=== PATIENT | female | born 2000 | race Hispanic/Latino ===

== ENCOUNTER 2023-01-30 16:24 | Inpatient (IN) | payer MEDICAID, SELFPAY ==
[2023-01-30] VITALS (38 sets, daily range): BP systolic 110–184; BP diastolic 57–114; PULSE 64–125; RESP 18; TEMP 36.5; O2SAT 92–100; BMI 29.7
--- NOTE | ~2023-01-30 | US_ITS ---
US OB follow up w BPP DATE: 01/30/2023 19:03 INDICATION: Abdominal pain for several hours. No care. TECHNIQUE: Real-time imaging and Doppler analysis COMPARISON: None FINDINGS: Live martinez intrauterine gestation, fetus in longitudinal lie, vertex presentation with heart rate of 115 bpm. Amniotic fluid index measures 6.9 cm, which is below the 5th percentile of 7.9 cm. Biparietal diameter 8.68 cm; 35 weeks 0 days Head circumference 32.69 cm; 37 weeks 1 day Abdominal circumference 31.02 cm; 35 weeks 0 days Femur length 6.78 cm; 34 weeks 6 days Composite age by [place] formula is 35 weeks 4 days +/- 2 weeks 3 days with LAMONT of 03/02/2023 compar ed to 01/06/2023 2 by LMP. Estimated weight is 2607 +/- 391 g. Head circumference/abdominal signal is 1.05, within normal range of 0.93-1.09 Femur length/BPD 78.14, within normal range of 71.0-87.0 Femur length/abdominal circumference 21.87, within normal range of 20.00-24.00 Femur length/head circumference 20.75, within normal range of 20.10-22.19 BIOPHYSICAL PROFILE reported by medical technician assistant: breathin out of 2 movement: 2 out of 2 tone: 0 out of 2 Amniotic fluid pocket: 2 out of 2 Total score: 4 out of 8 IMPRESSION: Oligohydramnios; LAURENCE measures 6.9 cm Biophysical profile score of 4 out of 8 Reviewed, dictated and finalized at [facility] Reviewed, dictated and finalized at [facility].
[2023-01-30 17:58] LABS: Basophils Percent Auto 0.2 % (0.2-1.2); Eosinophils Absolute Auto 0.1 K/mm3 (0-0.3); Eosinophils Percent Auto 0.7 % (0-4.4); Hematocrit 42.1 % (37.0-47.0); Hemoglobin 14.3 g/dL (12.0-15.0); Immature Granulocyte Absolute 0.03 K/mm3 (0.00-0.031); Immature Granulocyte Percent A 0.3 % (0-0.5); Lymphocytes Absolute Auto 2.13 K/mm3 (0.9-3.2); Lymphocytes Percent Auto 23.4 % (18.3-44.2); Mean Corpuscular Hemoglobin 31.4 pg (26-34); Mean Corpuscular Volume 92.3 fl (80-100); Mean Platelet Volume 11.7 fl (7.4-10.4); Monocytes Absolute Auto 0.5 K/mm3 (0.1-0.6); Monocytes Percent Auto 5.3 % (2.6-8.5); Neutrophils Absolute Auto 6.4 K/mm3 (1.3-6.7); Neutrophils Percent Auto 70.1 % (45.5-73.1); Platelet Count Result 175 k/mm3 (150-375); Red Blood Count 4.56 M/mm3 (4.2-5.4); Red Cell Distribution Width 14.5 % (11.5-14.5); White Blood Count 9.1 K/mm3 (4.5-10.0)
--- NOTE | 2023-01-30 18:28 | PC.NURSE ---
Pt arrived to department, she is mohawk speaking only. Her sister in law was with her and also mohawk speaking. States she had care in [place]. She could not remember the name of the clinic. Her sister in laws is going to get the information when he gets home. She stated her due date was 01/20. Fundal height on admission was 32. Denies bleeding but states she was leaking brownish fluid. Denies medical problems or past surgeries. She states the ultrasounds she had were fine. The doctors did not mention concerns with the placenta or the baby.
[2023-01-30 18:50] LABS: HIV 1/2 Ab P24 Ag Result Negative (Negative)
[2023-01-30] MEDS: LACTATED RINGERS 1,000 ML 999 ML IV CONT (19:15)
[2023-01-30] MEDS: fentaNYL CITRATE INJ (*CRX) 100 MCG/2 ML VIAL 50 MCG IV PUSH (19:44)
[2023-01-30] MEDS: LACTATED RINGERS 1,000 ML 125 ML IV CONT (20:15)
[2023-01-30] MEDS: AMPICILLIN 2 GM/NS 100 ML 2 GM/100 ML BAG IVPB (21:00)
[2023-01-30 21:03] LABS: Hepatitis B Surface Antigen Negative (Negative); Rubella IgG Antibody 1.9 IU/ML
--- NOTE | 2023-01-30 21:15 | P.PNAN_ITS ---
Anes - Initial Pre Proc Eval Procedure: Labor epidural Date/Time: 01/30/23 21:15 Surgeon: Belem Khan MD Pre Op Diagnosis: Labor pain Pre Op Diagnosis: contractions Patient Data Age: 22 Gender: F Height: 1.4 m Weight: 58 kg Last Vital Signs Pulse 84 01/30/23 17:48 BP 146/99 H 01/30/23 17:48 Allergies Allergy/AdvReac Type Severity Reaction Status Date / Time No Known Allergies Allergy Verified 01/30/23 20:57 Laboratory Tests 01/30/23 17:50 WBC 9.1 K/mm3 (4.5-10.0) RBC 4.56 M/mm3 (4.2-5.4) Hgb 14.3 g/dL (12.0-15.0) Hct 42.1 % (37.0-47.0) MCV 92.3 fl (80-100) MCH 31.4 pg (26-34) MCHC 34.0 g/dl (32-36) RDW 14.5 % (11.5-14.5) Plt Count 175 k/mm3 (150-375) MPV 11.7 H fl (7.4-10.4) Immature Gran % (Auto) 0.3 % (0-0.5) Neut % (Auto) 70.1 % (45.5-73.1) Lymph % (Auto) 23.4 % (18.3-44.2) [place] % (Auto) 5.3 % (2.6-8.5) Eos % (Auto) 0.7 % (0-4.4) Baso % (Auto) 0.2 % (0.2-1.2) Lymph # (Auto) 2.13 K/mm3 (0.9-3.2) [place] # (Auto) 0.5 K/mm3 (0.1-0.6) Eos # (Auto) 0.1 K/mm3 (0-0.3) Baso # (Auto) 0.0 K/mm3 (0.0-0.1) Abs Immat Gran (auto) 0.03 K/mm3 (0.00-0.031) Absolute Neuts (auto) 6.4 K/mm3 (1.3-6.7) Absolute Nucleated RBC 0.0 K/mm3 (0.0-0.012) Nucleated RBC % 0.0 % (0.0-0.2) RPR Pending Hep Bs Antigen Negative (Negative) HIV 1&2 Ab/P24 Ag 4thGn Negative (Negative) Rubella IgG Antibody 1.9 L IU/ML (10 - ) Blood Type O Positive Antibody Screen Negative Patient hx anesthesia problems: none Family hx anesthesia problems: none Results Review: All pre-operative results and documents have been reviewed as part of the pre- operative evaluation. Anes - Eval Final PreProcedure Day of Procedure 01/30/23 21:15 Patient weight: normal Heart: regular rate and rhythm Neurological: alert and oriented ASA classification: II Anesthetic plan: proceed Anesthesia type and monitoring: regional epidural and standard monitoring Results Review: All pre-operative results and documents have been reviewed as part of the pre- operative evaluation. Informed Consent: The patient's anesthetic plan and its attendant risks and benefits were discussed with the patient/family/POA. Questions were solicited and answers provided to the satisfaction of the patient/family/POA.
--- NOTE | 2023-01-30 21:38 | WPDANESEPN ---
Anes - Epidural Procedure Note Date/Time: 01/30/23 21:38 Consent: I have discussed with the patient/family/POA, the placement of an epidural catheter and the use of epidural narcotic/local anesthetic for labor analgesia and/or postoperative pain management, including associated potential risks, benefits, complications and side effects. I have discussed alternative methods of labor analgesia and/or postoperative pain management. The patient/family/POA, understand(s) and wish(es) to proceed with epidural narcotic/local anesthetic for labor analgesia and/or postoperative pain management. Time-Out: A pre-procedural Time-Out was completed immediately before starting the procedure and confirmed: Patient Identification, Site, Procedure, Patient Position and the Availability of Requisite Equipment. Clinical Indications: Labor pain Epidural Insertion Note Patient position: sitting Skin prep: chlorhexidine and sterile drape Needle: 18g Tuohy-Schliff Catheter: 20g Unstyleted Technique: Loss of resistance. Level of insertion: L3/4 Catheter skin kaycee (cm): 8 Length in epidural space (cm): 3 Skin anesthesia: lidocaine 1% Test dose: 1.5% Lidocaine with 1:[id number] Epi, negative for subarachnoid Inj and negative for intravascular Inj Time of test dose: 21:26 Observations: tolerated well Complications: none
--- NOTE | 2023-01-30 22:01 | WPDHPUPDATE1 ---
History and Physical Update Update Date/Time: 01/30/23 22:01 History and Physical has been reviewed, including an updated exam of the patient. There are NO changes in the patient's condition. Risks, benefits, and alternatives have been discussed and questions answered. Patient agrees to proceed with procedure.
--- NOTE | 2023-01-30 22:02 | PM.IMHP ---
H&P: HPI History of Present Illness Date/Time: 01/30/23 22:02 Chief Complaint: Contractions Narrative: This patient is a 20-year-old 1 at approximately 37 weeks gestation. Her care is unknown to us. She is [place]ian-speaking only. She has trouble cross-country and presented here. She has nonreassuring testing, BPP 4/8, nonreassuring NST. Early labor. Will proceed to delivery. She understands. She understands risk. She denies any nausea, vomiting, fever, chills. She denies any not trust pain shortness of breath. Review of Systems Review of Systems: All systems reviewed & are unremarkable except as noted in HPI and below Constitutional: Constitutional: Denies chills, Denies fatigue, Denies fever(s) and Denies weakness Eyes: Eyes: Denies blurry vision, Denies change in vision, Denies loss of peripheral vision, Denies loss of vision, Denies other visual disturbances and Denies eye pain ENT: Denies vertigo, Denies dizziness, Denies hearing loss, Denies mouth pain, Denies nasal obstruction, Denies neck mass and Denies neck pain Cardiovascular: Cardiovascular: Denies chest pain, Denies diaphoresis, Denies syncope, Denies leg edema and Denies dyspnea Respiratory: Respiratory: Denies chest congestion, Denies cough, Denies hemoptysis, Denies dyspnea and Denies wheezing Gastrointestinal: Gastrointestinal: Denies abdominal pain, Denies constipation, Denies diarrhea, Denies nausea and Denies vomiting Genitourinary: Genitourinary: Denies hematuria, Denies change in libido, Denies nocturia, Denies genital lesions, Denies flank pain and Denies urinary urgency Musculoskeletal: Musculoskeletal: Denies abnormal gait, Denies back pain, Denies myalgias, Denies arthralgias, Denies joint swelling, Denies muscle weakness and Denies neck pain Integumentary/Breasts: Skin/Breast: Denies swelling, Denies breast pain, Denies breast mass, Denies dry skin, Denies nipple discharge, Denies unusual bruising and Denies jaundice Neurologic: Denies Neuro-related abnormal movements, Denies Abnormal speech present, Denies abnormal gait, Denies behavioral changes, Denies confusion, Denies vertigo, Denies dizziness, Denies syncope, Denies loss of vision, Denies memory loss, Denies convulsions and Denies weakness Psychiatric: Psychiatric: Denies abnormal sleep pattern, Denies behavioral changes, Denies change in libido, Denies confusion, Denies depression, Denies anhedonia and Denies memory loss Endocrine: Endocrine: Reports no additional endocrine complaints, Denies change in libido and Denies fatigue Hematologic/Lymphatic: Hematologic/Lymphatic: Reports no additional hematologic/lymphatic complaints Allergic/Immunologic: Allergic/Immunologic: Reports no additional allergic/immunologic complaints and Denies wheezing Meds Home Medications and Allergies Allergies Allergy/AdvReac Type Severity Reaction Status Date / Time No Known Allergies Allergy Verified 01/30/23 20:57 Vital Signs Vital Signs - 24 hr 01/30/23 17:47 01/30/23 17:48 01/30/23 21:19 Pulse Rate 91 84 Blood Pressure 132/91 H 146/99 H Pulse Oximetry 100 01/30/23 21:21 01/30/23 21:24 01/30/23 21:25 Pulse Rate 70 87 Blood Pressure 159/90 H 146/92 H Pulse Oximetry 100 01/30/23 21:26 01/30/23 21:29 01/30/23 21:31 Pulse Rate 101 H 91 Blood Pressure 134/94 H 125/77 Pulse Oximetry 100 01/30/23 21:34 01/30/23 21:36 01/30/23 21:39 Pulse Rate 120 H Blood Pressure 114/57 L Pulse Oximetry 100 100 01/30/23 21:40 01/30/23 21:43 01/30/23 21:44 Pulse Rate 111 H 79 Blood Pressure 118/81 124/78 Pulse Oximetry 100 01/30/23 21:46 01/30/23 21:49 01/30/23 21:55 Pulse Rate 104 H 86 106 H Blood Pressure 112/76 127/84 130/78 Pulse Oximetry 100 01/30/23 22:00 Pulse Rate 91 Blood Pressure 143/90 H Pulse Oximetry Exam Const: General: cooperative, healthy appearing, comfortable and no acute distress Orientation/
[2023-01-30] MEDS: ceFAZolin 2 GM/D5W 50 ML 2 GM/50 ML BAG IVPB (22:07)
[2023-01-30] MEDS: AZITHROMYCIN 500 MG/NS 250 ML 500 MG/250 ML BAG 250 MG IVPB (22:15)
--- NOTE | 2023-01-30 22:48 | P.PNAN_ITS ---
Anes - Eval Final PreProcedure Day of Procedure 01/30/23 22:48 Patient weight: overweight Heart: regular rate and rhythm Lungs: clear to auscultation Neurological: other (alert) ASA classification: II Emergent: yes Anesthetic plan: proceed Anesthesia type and monitoring: regional (use epid for c/s) epidural Other findings: exam per GW Results Review: All pre-operative results and documents have been reviewed as part of the pre- operative evaluation. Informed Consent: The patient's anesthetic plan and its attendant risks and benefits were discussed with the patient/family/POA. Questions were solicited and answers prov ided to the satisfaction of the patient/family/POA.
--- NOTE | 2023-01-30 22:50 | P.OP_ITS ---
Procedure Note - Detailed Date of Procedure 01/30/23 Pre-op Diagnosis nonreassuring heart tones Post-op Diagnosis Same Procedure Performed Low-transverse section Surgeon Belem Khan MD Anesthesia Spinal Findings Normal gestational maternal anatomy, average size infant, normal Apgars. Copious meconium Description of Procedure The patient was taken the operating room. She was prepped and draped in dorsal supine position with a leftward tilt. This was done after spinal anesthetic was applied. A low-transverse skin incision was made and carried down till of the fascia with the knife. The fascial incision was made with the knife. The fasci al incision was extended laterally with Gallego scissors. The fascia was tented upward superiorly and inferiorly the rectus muscles were dissected off bluntly. The rectus muscles were the midline. The preperitoneal fat and peritoneum were dissected open bluntly at the superior aspect of the rectus muscles. The peritoneal incision was extended superior and inferior with good position of bladder. The uterine incision was made with a scalpel down to the level of the amniotic cavity. The amniotic cavity was entered bluntly. The infant was delivered. The cord was clamped and cut and the infant was handed off to waiting pediatric staff. Cord bloods were obtained. The placenta was removed manually. The uterus was exteriorized. The uterus was cleared of all clots, debris and membranes. The uterus was closed in 0 Vicryl running lock fashion. An imbricating over a was placed along the incision line as well. The uterus was returned to the abdomen. The gutters were cleared of all clots and debris. The fascia was closed with 0 Vicryl running fashion. The subcutaneous tissue was irrigated pinpoint bleeders were cauterized. The skin was closed with subcuticular absorbable jaspreet. The skin incision line was covered with glue. The patient tolerated the procedure well. She has taken recovery room in stable condition. Sponge lap and needle counts were correct x2. Complications No immediate complications Condition Stable Disposition PACU
[2023-01-31] VITALS (27 sets, daily range): BP systolic 106–143; BP diastolic 65–85; PULSE 54–92; RESP 16–18; TEMP 36.5–37.5; O2SAT 99–100
[2023-01-31] MEDS: OXYTOCIN 30 UNITS/NS 500 ML 30 UNITS/500 ML BAG 125 UNITS IV CONT ×2 (00:47→01:00)
[2023-01-31] MEDS: HYDROcodone/acetaminophen (*CRX) 5-325 MG TABLET 1 TAB PO ×2 (02:31→15:20)
[2023-01-31] MEDS: DEXTROSE 5%/0.45% SOD CHL 1,000 ML 125 ML IV CONT (05:55)
[2023-01-31 05:58] LABS: Basophils Percent Auto 0.1 % (0.2-1.2); Hematocrit 35.3 % (37.0-47.0); Immature Granulocyte Absolute 0.08 K/mm3 (0.00-0.031); Immature Granulocyte Percent A 0.6 % (0-0.5); Immature Platelet Fraction Pct 7.4 % (0.9-11.2); Lymphocytes Absolute Auto 1.04 K/mm3 (0.9-3.2); Lymphocytes Percent Auto 8.1 % (18.3-44.2); Mean Corpuscular Hemoglobin 31.7 pg (26-34); Mean Corpuscular Volume 93.4 fl (80-100); Mean Platelet Volume 11.4 fl (7.4-10.4); Monocytes Absolute Auto 0.5 K/mm3 (0.1-0.6); Monocytes Percent Auto 3.7 % (2.6-8.5); Neutrophils Absolute Auto 11.2 K/mm3 (1.3-6.7); Neutrophils Percent Auto 87.5 % (45.5-73.1); Platelet Count Result 148 k/mm3 (150-375); Red Blood Count 3.78 M/mm3 (4.2-5.4); Red Cell Distribution Width 14.4 % (11.5-14.5); White Blood Count 12.8 K/mm3 (4.5-10.0)
--- NOTE | 2023-01-31 07:51 | PM.OBPNVD ---
OB - PN: Subj Subjective Date/time seen: 01/31/23 07:51 Interval history: post op day 1 primary section flatus not yet present pain management baby doing well OB - PN: Obj Data Labs 01/31/23 05:50 Labs: Laboratory Results - last 24 hr 01/30/23 01/31/23 17:50 05:50 WBC 9.1 12.8 H RBC 4.56 3.78 L Hgb 14.3 12.0 Hct 42.1 35.3 L MCV 92.3 93.4 MCH 31.4 31.7 MCHC 34.0 34.0 RDW 14.5 14.4 Plt Count 175 148 L MPV 11.7 H 11.4 H Immature Gran % (Auto) 0.3 0.6 H Neut % (Auto) 70.1 87.5 H Lymph % (Auto) 23.4 8.1 L [place] % (Auto) 5.3 3.7 Eos % (Auto) 0.7 0.0 Baso % (Auto) 0.2 0.1 L Lymph # (Auto) 2.13 1.04 [place] # (Auto) 0.5 0.5 Eos # (Auto) 0.1 0.0 Baso # (Auto) 0.0 0.0 Abs Immat Gran (auto) 0.03 0.08 H Absolute Neuts (auto) 6.4 11.2 H Absolute Nucleated RBC 0.0 0.0 Nucleated RBC % 0.0 0.0 % Immature Plt Fraction 7.4 Hep Bs Antigen Negative HIV 1&2 Ab/P24 Ag 4thGn Negative Rubella IgG Antibody 1.9 L Blood Type O Positive Antibody Screen Negative Imaging Radiologist's impression: Impressions Obstetrical Follow-Up 01/30/23 19:15 IMPRESSION: Oligohydramnios; LAURENCE measures 6.9 cm Biophysical profile score of 4 out of 8 OB - PN A/P Plan day: 1 Time Spent With Patient Time: Total time spent is greater than 50% in coordination of care (as documented) at patient's floor/unit and/or counseling patient: Review of Systems Review of Systems: All systems reviewed & are unremarkable except as noted in HPI and below Exam Const: General: cooperative and healthy appearing Chest: Chest palpation & inspection: normal inspection of the chest Resp: Effort & Inspection: normal respiratory effort Cardio: Rate: regular rate Rhythm: regular rhythm GI: Other: incision CDI Skin: General skin exam: normal color Extrem: Right lower extremity: edema Left lower extremity: edema Psych: Appearance: grossly normal
--- NOTE | 2023-01-31 08:20 | WPDANLDPN2 ---
Anes-Prog Note L&D Date/Time: 01/31/23 08:20 Comfortable throughout: section Neuraxial method: spinal Epidural/Spinal procedure site: clean & non-tender Neuro status: Neuro function grossly intact. Cardiovascular status: normal Respiratory status: normal Airway patency: baseline Mental status: baseline Post-Op hydration status: normal Vital Signs: Last Vital Signs Temp 36.8 C 01/31/23 02:25 Pulse 59 L 01/31/23 02:25 Resp 16 01/31/23 02:25 BP 143/83 H 01/31/23 02:25 Pulse Ox 100 01/31/23 00:40 O2 Del Method Room Air 01/31/23 02:09 Pain score (VAS): 10 I/O: Intake & Output 01/30/23 01/31/23 01/31/23 23:59 07:59 15:59 Output Total 525 950 Balance -525 -950 Post-procedural complaints: none Patient feedback: Patient satisfied with anesthetic care.
--- NOTE | 2023-01-31 08:21 | WPDANLDNPN2 ---
Anes-Prog Note L&D-Neuraxial Date/Time: 01/31/23 08:21 Neuraxial medications: intrathecal PF morphine Opiod-related complaints: none Patient feedback: Patient satisfied with post-operative pain management.
[2023-01-31] MEDS: KETOROLAC 30 MG/ML VIAL (*BKC) IV PUSH (08:45)
[2023-01-31 11:26] LABS: Rapid Plasma Reagin Non-Reactive (NonReactive)
[2023-01-31] MEDS: IBUPROFEN 600 MG TABLET PO ×2 (15:20→21:43)
--- NOTE | 2023-01-31 16:12 | PCCCNOTE ---
Care Coordination met with pt. this morning to discuss discharge planning. Pt.'s D/C plan is to return home with her , DELL and brother. Pt. has a lot of family support. She confirms she has everything needed to safely bring baby home. Pt. has been provided a care basket and denies any additional needs. She has no DCFS HX. Pt. is [place] speaking and CC used [employer] #[id number].
[2023-01-31] MEDS: SIMETHICONE 80 MG TAB.CHEW PO (21:43)
--- NOTE | 2023-02-01 05:34 | PM.OBPNVD ---
OB - PN: Subj Subjective Date/time seen: 02/01/23 05:34 Interval history: post op day 2 primary section flatus present pain management baby will be here for a few days, having trouble with feeding and temperature regulation OB - PN: Obj Data Labs 01/31/23 05:50 Labs: Laboratory Results - last 24 hr 01/30/23 01/31/23 17:50 05:50 WBC 12.8 H RBC 3.78 L Hgb 12.0 Hct 35.3 L MCV 93.4 MCH 31.7 MCHC 34.0 RDW 14.4 Plt Count 148 L MPV 11.4 H Immature Gran % (Auto) 0.6 H Neut % (Auto) 87.5 H Lymph % (Auto) 8.1 L [place] % (Auto) 3.7 Eos % (Auto) 0.0 Baso % (Auto) 0.1 L Lymph # (Auto) 1.04 [place] # (Auto) 0.5 Eos # (Auto) 0.0 Baso # (Auto) 0.0 Abs Immat Gran (auto) 0.08 H Absolute Neuts (auto) 11.2 H Absolute Nucleated RBC 0.0 Nucleated RBC % 0.0 % Immature Plt Fraction 7.4 RPR Non-reactive OB - PN A/P Plan day: 2 Plan: routine care Time Spent With Patient Time: Total time spent is greater than 50% in coordination of care (as documented) at patient's floor/unit and/or counseling patient: Review of Systems Review of Systems: All systems reviewed & are unremarkable except as noted in HPI and below Exam Const: General: cooperative and healthy appearing Chest: Chest palpation & inspection: normal inspection of the chest Resp: Effort & Inspection: normal respiratory effort Cardio: Rate: regular rate Rhythm: regular rhythm GI: Other: incision CDI Skin: General skin exam: normal color Neuro: General: patient oriented x3 Extrem: Right lower extremity: normal to inspection Left lower extremity: normal to inspection Psych: Appearance: grossly normal
[2023-02-01] MEDS: IBUPROFEN 600 MG TABLET PO ×2 (07:25→16:14)
[2023-02-01] MEDS: DOCUSATE SODIUM 100 MG CAPSULE PO ×2 (07:26→16:16)
[2023-02-01] MEDS: MULTIVIT/MIN/PREN/FOL AC/IRON TABLET 1 TAB PO (07:27)
[2023-02-01 07:45] VITALS: BP 114/76; PULSE 61; RESP 18; TEMP 36.7; O2SAT 100
[2023-02-01 20:34] VITALS: BP 105/68; PULSE 83; RESP 18; TEMP 37.2; O2SAT 98
[2023-02-01] MEDS: HYDROcodone/acetaminophen (*CRX) 5-325 MG TABLET 1 TAB PO (21:05)
[2023-02-02] MEDS: HYDROcodone/acetaminophen (*CRX) 5-325 MG TABLET 1 TAB PO ×4 (00:27→22:59)
[2023-02-02] MEDS: IBUPROFEN 600 MG TABLET PO ×4 (00:27→22:59)
[2023-02-02] MEDS: DOCUSATE SODIUM 100 MG CAPSULE PO ×2 (07:11→16:57)
[2023-02-02] MEDS: MULTIVIT/MIN/PREN/FOL AC/IRON TABLET 1 TAB PO (07:12)
[2023-02-02 07:16] VITALS: BP 97/56; PULSE 59; PULSE 83; RESP 18; TEMP 37.3; O2SAT 98; O2SAT 99
--- NOTE | 2023-02-02 07:21 | PC.NURSE ---
Stratus line used to discuss morning routine, plan of care for the day and update on baby given. Discussed feeding plans, mother denies wanting to pump at this time. No questions or concerns at this time. Menus given for pt to fill out, will call when finished so I can call down to order.
--- NOTE | 2023-02-02 09:39 | P.PNOB_ITS ---
OB - PN: Subj Subjective Date/time seen: 02/02/23 09:39 Interval history: post op day 2 primary section flatus present pain management baby will be here for a few days, having trouble with feeding and temperature regulation Patient comments: no complaints, pain well controlled, incisional pain, tolerating diet and flatus present OB - PN: Obj Data Labs 01/31/23 05:50 OB - PN A/P Plan day: 3 Plan: routine care and other Comments: Incision check in one week. Given precautions Time Spent With Patient Time: Total time spent is greater than 50% in coordination of care (as documented) at patient's floor/unit and/or counseling patient: Exam Const: General: comfortable, no acute distress and alert Resp: Effort & Inspection: normal respiratory effort Auscultation: no crackles, no rales and no rhonchi Cardio: Rate: regular rate Heart sounds: no click, no murmurs and no rubs GI: Inspection: non-distended GI Palp: No Tenderness to palpation present ( GI) Auscultation: normal bowel sounds Other: Incision - CDI Extrem: General: normal to inspection, no pedal edema and no calf tenderness
--- NOTE | 2023-02-02 10:30 | PC.NURSE ---
Checked on patient, she is resting in bed. Denies the need for pain medication at this time per behavioral health therapist.
--- NOTE | 2023-02-02 13:29 | PC.NURSE ---
Pt laying in bed, I have not seen her up out of bed today. Encouraged her to get up and walk at least in the room, she denied the need for pain medication at this time. This morning I gave the patient a menu and asked her to fill out what she wanted for breakfast, lunch and dinner. she denied wanting food. I just asked the patient if she had ate today and she stated no, but would like some food. A sandwich, chips, and fruit cup was given to the patient.
[2023-02-02 19:51] VITALS: BP 111/64; PULSE 71; RESP 18; TEMP 37.6; O2SAT 100
[2023-02-02 22:50] VITALS: BP 117/83; PULSE 95; RESP 16; TEMP 37.7; O2SAT 100
[2023-02-03 03:25] VITALS: BP 111/70; PULSE 64; RESP 16; TEMP 37.3; O2SAT 100
[2023-02-03] MEDS: HYDROcodone/acetaminophen (*CRX) 5-325 MG TABLET 1 TAB PO ×2 (03:27→09:08)
[2023-02-03 07:15] VITALS: BP 116/77; PULSE 79; RESP 16; TEMP 36.8; O2SAT 99
--- NOTE | 2023-02-03 08:29 | PM.OBPNVD ---
OB - PN: Subj Subjective Date/time seen: 02/03/23 08:29 Interval history: post op day 2 primary section flatus present pain management baby will be here for a few days, having trouble with feeding and temperature regulation Patient comments: no complaints, pain well controlled and tolerating diet OB - PN: Obj Data Labs 01/31/23 05:50 OB - PN A/P Plan day: 4 Plan: routine care and discharge home Time Spent With Patient Time: Total time spent is greater than 50% in coordination of care (as documented) at patient's floor/unit and/or counseling patient: Exam Const: General: comfortable and no acute distress Resp: Effort & Inspection: normal respiratory effort Auscultation: no rales, no rhonchi and no wheezes Cardio: Rate: regular rate Heart sounds: no click, no murmurs and no rubs GI: GI Palp: Yes Soft to palpation and No Tenderness to palpation present (GI) Auscultation: normal bowel sounds Extrem: General: normal to inspection, no pedal edema and no calf tenderness
[2023-02-03] MEDS: DOCUSATE SODIUM 100 MG CAPSULE PO (09:07)
[2023-02-03] MEDS: MULTIVIT/MIN/PREN/FOL AC/IRON TABLET 1 TAB PO (09:07)
[2023-02-03] MEDS: TETANUS,DIPHTHERIA,AC PERTUSSIS ADULT (0.5 ML) BOOSTRIX IM (09:08)
[2023-02-03] MEDS: IBUPROFEN 600 MG TABLET PO (09:08)
[2023-02-03] MEDS: MEASLES,MUMPS,RUBELLA VACCINE 0.5 ML VIAL SUB-Q (09:09)
--- NOTE | 2023-02-28 11:32 | PM.OBDSVD ---
DS: Admitting Diagnosis Discharge Date 02/03/23 Admitting Diagnosis term DS: Discharge Diagnosis Discharge Diagnosis (1) delivery delivered: Code(s): O82 - Encounter for delivery without indication Status: Acute OB - DS: Summary OB Procedures : None OB Procedures Intrapartum: OB Procedures: : None Peripartum Data Procedures: Procedures Operation Date: 01/30/23 22:00 Actual Procedure Side Surgeon p Section Belem Khan MD Time Spent with Patient Time attestation: Total time spent providing and/or coordinating discharge services: DS: Data Data Completed and Pending Completed studies during hospitalization: Pending at discharge 01/30/23 22:21 Surgical [PTH] Routine Discharge Plan Discharge Consulting providers: Sanju Greenberg; Mahogany Martinez; Aubrey Han; Alli Apple; Liliam Lo Discharging Clinician: Belem Khan Patient Disposition: Home, Self-Care Activity: pelvic rest Diet: regular Discharge Instructions: Education: Mom and Baby Guide Given to: Mother Follow-Up: Call your delivering provider's office for an appointment to be seen in: 4 Weeks BREAST CARE: * Wear a snug supportive bra. * For engorgement discomfort: Breast Feeding: * Apply warm moist washcloths * Express milk as needed to relieve engorgement * Wear loose clothing Bottle Feeding: * May apply ice packs * For sore nipples: * Identify correct latch-on * Apply warm moist washcloths before and after nursing * Air dry nipples after nursing * May apply Lansinoh cream to nipples ABDOMINAL INCISION: * Allow incision to air dry * Do NOT use lotions or powders on your incision * When showering, allow soap and water to run over the incision, but do not wash incision PERINEAL CARE: * Until bleeding stops, use your faith bottle after urinating * Change your pad frequently throughout the day * You may take sitz baths several times a day (fill your bathtub with warm water and soak for 20 minutes.) Do NOT bathe in the water * No tub baths until seen by your physician - You may shower ACTIVITY: * Rest as much as possible. * Do not exercise or lift anything heavier than your baby (such as laundry or other children.) * Avoid stairs or driving as much as possible. * Do not put anything into the vagina. No douching, tampons, or sexual activity until seen by physician. NOTIFY PHYSICIAN IF YOU HAVE ANY QUESTIONS OR IF ANY OF THE FOLLOWING SYMPTOMS OCCUR: * If your incision becomes red, swollen, or more painful than what you have experienced in the hospital. * If your vaginal bleeding becomes foul smelling. * If your vaginal bleeding becomes more heavy than a period or if your bleeding changes from pink to bright red. However, you may pass an occasional walnut-sized clot once or twice for the first week . * If you experience a sharp, shooting pain in your calves. * If you discover a hard, reddened area on your breast or if you experience flu-like symptoms. DIET: * Eat regular, well-balanced meals. * Drink plenty of fluids daily. If , drink to thirst. Patient Instructions: Antibiotic Form Stand Alone Forms: General Discharge Information Follow-up/Referrals: Belem Khan MD [Physician] - Discharge Medications: New oxycodone-acetaminophen 5-325 mg tablet 1 tablet PO Q4H PRN (Reason: pain) Qty: 25 0RF Date of admission: 01/30/23 19:31 Primary Care Provider: PHYSICIAN,PAYROLL ADMINISTRATOR Admitting Provider: Belem Khan Attending physician on admission: Belem Khan Condition: Stable
== END 2023-02-03 10:20 | disposition home or self-care (01) | DRG 540 ==
LOC: ANHLDR 22:30 → ANHOB2 01-31 02:56
PROVIDERS: Admitting Provider Obstetrics & Gynecology; Visit Provider Obstetrics & Gynecology
PROC: 10D00Z1 Extraction of Products of Conception, Low, Open Approach (ICD-10-PCS; CPT 59514; principal; 2023-01-30 22:00)
DX: O76 Abnormality in fetal heart rate and rhythm complicating labor and delivery (principal); O48.1 Prolonged pregnancy; Z3A.49 Greater than 42 weeks gestation of pregnancy; O77.0 Labor and delivery complicated by meconium in amniotic fluid; Z37.0 Single live birth
CPT/HCPCS: 36415; 76816; 76819; 85025; 85055; 86592; 86703; 86762; 86850; 86900; 86901; 87070; 87205; 87340; 88307; 90710; 90715; A9270; G0378; G0379; G0432; J0290; J0456; J0690; J1885; J2175; J2274; J2590; J2795; J3010; J7120